=== PATIENT | male | born 2000 | race African-American/Black ===

== ENCOUNTER → 2025-04-18 | Emergency (ER) | payer MEDICAID ==
[~2025-04-18] VITALS: Ht 193 cm; Wt 106.8 kg
[~2025-04-18] MED LIST: ARIP15TA27 PO; DIVA-153 PO
[2025-04-18 01:09] VITALS: BP 138/76; PULSE 70; RESP 15; TEMP 98.1; O2SAT 100
== END | disposition still patient (30) ==
LOC: EMS 00:45
DX: S93.402A Sprain of unspecified ligament of left ankle, initial encounter (principal); F20.9 Schizophrenia, unspecified; F31.9 Bipolar disorder, unspecified; F17.210 Nicotine dependence, cigarettes, uncomplicated; Z79.899 Other long term (current) drug therapy; W19.XXXA Unspecified fall, initial encounter; X50.1XXA Overexertion from prolonged static or awkward postures, initial encounter; Y93.67 Activity, basketball; Y92.89 Other specified places as the place of occurrence of the external cause; Y99.8 Other external cause status
CPT/HCPCS: 99283

== ENCOUNTER 2025-04-21 16:36 | Emergency (ER) | payer MEDICAID ==
[~2025-04-21] VITALS: Ht 193 cm; Wt 106.8 kg
[2025-04-21 16:44] VITALS: BP 121/72; PULSE 82; RESP 18; TEMP 98.1; O2SAT 99
[2025-04-21] MEDS: IBUPROFEN 400 MG TABLET PO ONE (17:00)
[2025-04-21] MEDS: ACETAMINOPHEN 500 MG TABLET PO ONE (17:00)
== END 2025-04-21 18:45 | disposition home or self-care (01) ==
LOC: EMS 16:36
DX: S93.402A Sprain of unspecified ligament of left ankle, initial encounter (principal); F25.9 Schizoaffective disorder, unspecified; F31.9 Bipolar disorder, unspecified; F17.210 Nicotine dependence, cigarettes, uncomplicated; Z79.899 Other long term (current) drug therapy; X50.1XXA Overexertion from prolonged static or awkward postures, initial encounter; Y93.67 Activity, basketball; Y92.89 Other specified places as the place of occurrence of the external cause; Y99.8 Other external cause status
CPT/HCPCS: 99283